=== PATIENT | male | born 1965 | race African-American/Black ===

== ENCOUNTER 2022-11-22 22:36 | Emergency (ER) | payer MEDICARE, MEDICAID ==
[~2022-11-22] VITALS: Ht 177.8 cm; Wt 95.0 kg
[2022-11-22 22:41] VITALS: BP 152/110
[2022-11-22] MEDS ORDERED: ONDANSETRON HCL 4MG/2ML INJ IV STA (22:59)
[2022-11-22] MEDS ORDERED: SODIUM CHLORIDE 0.9% 1,000 ML IV ONE (23:00)
[2022-11-22 23:52] LABS: BASOPHILS % 0.9 % (0.0-2.0); EOSINOPHILS % 1.1 % (0.0-5.0); HEMATOCRIT. 41.4 % (42.0-52.0); HEMOGLOBIN. 13.8 g/dL (14.0-18.0); MEAN CORPUSCULAR VOLUME 89.9 fL (80.0-94.0); MEAN PLATELET VOLUME 8.4 fl (7.4-10.4); MONOCYTES % 10.9 % (2.0-8.0); NEUTROPHILS % 63.1 % (40.0-76.0); PLATELET 281 x1000/uL (130-400); RED BLOOD CELL COUNT 4.61 mill/uL (4.7-6.1); RED CELL DISTRIBUTION WIDTH 13.2 % (11.6-14.6)
[2022-11-23 00:24] LABS: CHLORIDE 109 mEq/L (98-107)
[2022-11-23 00:37] LABS: ETHANOL BLOOD < 10 mg/dL
== END 2022-11-23 02:30 | disposition left against medical advice (07) ==
LOC: ER 22:36
DX: R55 Syncope and collapse (principal); S40.012A Contusion of left shoulder, initial encounter; D64.9 Anemia, unspecified; F12.10 Cannabis abuse, uncomplicated; E66.9 Obesity, unspecified; Z68.30 Body mass index [BMI] 30.0-30.9, adult; W19.XXXA Unspecified fall, initial encounter; Y93.89 Activity, other specified; Y92.89 Other specified places as the place of occurrence of the external cause
CPT/HCPCS: 36415; 80053; 80320; 83690; 83880; 84484; 85025; 99283; J7030; G0480

== ENCOUNTER 2024-07-04 14:23 | Emergency (ER) | payer MEDICARE, MEDICAID ==
[~2024-07-04] VITALS: Ht 172.7 cm; Wt 75.0 kg
[2024-07-04 14:27] VITALS: BP 140/80; PULSE 82; RESP 14; TEMP 98.9; O2SAT 98
== END 2024-07-04 16:12 | disposition home or self-care (01) ==
LOC: ER 14:37
DX: Z00.00 Encounter for general adult medical examination without abnormal findings (principal); F12.10 Cannabis abuse, uncomplicated
CPT/HCPCS: 99283